=== PATIENT | male | born 1950 | race Caucasian/White ===

== ENCOUNTER 2019-06-05 11:27 | Inpatient (IN) | payer OTHER ==
[~2019-06-05] VITALS: Ht 182.9 cm; Wt 100.2 kg
[2019-06-05 11:36] VITALS: BP 105/58
[2019-06-05 13:13] LABS: HEMATOCRIT 22.8 % (42.0-52.0); MCH 14.8 pg (26.0-34.0); MCHC 27.3 g/dL (28.0-37.0); MCV 54.3 fL (80.0-100.0); PLATELET COUNT 276 thou/uL (150-400); RBC 4.19 mil/uL (4.50-6.00); RDW 20.4 % (10.5-14.5); WBC 5.8 thou/uL (4.0-11.0)
[2019-06-05 13:17] LABS: HEMOGLOBIN 6.2 gm/dL (14.0-18.0)
[2019-06-05 13:24] LABS: ANION GAP 11 mmol/L (7-16); BUN 20 mg/dL (7-18); CALCIUM 8.9 mg/dL (8.5-10.1); CHLORIDE 101 mmol/L (98-107); CO2 24 mmol/L (21-32); CREATININE 0.9 mg/dL (0.7-1.3); GLUCOSE 191 mg/dL (74-106); POTASSIUM 3.8 mmol/L (3.5-5.1); SODIUM 136 mmol/L (136-145)
[2019-06-05 13:34] LABS: TROPONIN-I <0.06 ng/mL (<0.06)
[2019-06-05 13:43] LABS: ABSOLUTE NEUTROPHILS 4.2 thou/uL (1.4-8.2)
[2019-06-05 13:44] LABS: ANISOCYTOSIS 2+; MICROCYTES 3+; OVALOCYTES OCCASIONAL
[2019-06-05 13:45] LABS: HYPOCHROMASIA 3+; POLYCHROMASIA OCCASIONAL; TARGET CELLS OCCASIONAL
--- NOTE | 2019-06-05 14:07 | EKG ---
[facility] [place] [address] ELECTROCARDIOGRAM REPORT Name: KELECHI SHAY Room #: REG ER M.#: [id number] Admission: 06/05/19 Attend Phys: Discharge: Date of : 52 Report #: [id number] THIS REPORT FOR: cc: Megan Gallo MD, Melanie MD Couchonnal,Jens Calabrese MD ~ THIS REPORT FOR: //name// [facility] ED Test Date: 2019-06-05 Test Time: 12:27:02 Pat Name: KELECHI SHAY Department: Room: Gender: M Kettle Tender: : 1950 Requested By: Kelechi Chaudhari Order Number: [id number] MD: Jens Hernandez Measurements Intervals [place] Rate: 86 P: AR: QRS: -57 QRSD: 136 T: 113 QT: 521 QTc: 624 Interpretive Statements Atrial fibrillation Nonspecific IVCD with LAD Inferior infarct, old Lateral leads are also involved No previous ECG available for comparison Electronically Signed On 06-05-2019 14:06:06 CDT by Jens Hernandez [email or web address] <ELECTRONICALLY SIGNED> By: Jens Hernandez MD 06/05/19 1406 1227 122 Jens Hernandez MD /[place]
[2019-06-05 14:50] LABS: ABSOLUTE RETIC COUNT 0.0988 10^6/uL; OBSERVED RETIC COUNT 2.33 % (0.6-2.6)
[2019-06-05 14:52] LABS: % SATURATION 3 % (20-39); IRON 13 ug/dL (65-175); TIBC 422 ug/dL (250-450)
[2019-06-05 18:16] VITALS: BP 105/81
[2019-06-05 19:14] VITALS: BP 103/70
[2019-06-05 19:45] VITALS: BP 108/42
[2019-06-06] VITALS (9 sets, daily range): BP systolic 100–112; BP diastolic 62–79
--- NOTE | 2019-06-06 00:55 | NUR ---
PT ARRIVED ER VIA BED, PLACED IN ROOM 360. DROPLET/AIRBORNE PRECAUTIONS IN PLACE. ADMISSION ASSESSMENTS COMPLETED. PT WAS TO HAVE CT-CHEST W/CONTRAST BUT HE IS UNABLE TO LIE FLAT EVEN FOR FEW SECONDS. "I'M SORRY, I JUST CAN'T DO IT." WILL REASSESS ABILITY TO LIE FLAT WITH NURSING ASSESSMENTS. PROPERTY AND CASUALTY INSURANCE AGENT INFORMED OF PT INABILITY TO LIE FLAT AND DO CT SCAN. CONTINUE TO MONITOR.
[2019-06-06 02:07] LABS: GLYCOHEMOGLOBIN (HGB A1C) 10.4 % (4.8-5.6)
[2019-06-06 06:04] LABS: HEMATOCRIT 21.7 % (42.0-52.0)
[2019-06-06 06:06] LABS: MCH 15.1 pg (26.0-34.0); MCHC 27.4 g/dL (28.0-37.0); MCV 54.9 fL (80.0-100.0); RBC 3.95 mil/uL (4.50-6.00); RDW 20.4 % (10.5-14.5)
[2019-06-06 06:17] LABS: ALBUMIN 2.9 g/dL (3.4-5.0); CALCIUM 8.2 mg/dL (8.5-10.1); POTASSIUM 3.3 mmol/L (3.5-5.1)
[2019-06-06 06:24] LABS: CHOLESTEROL 97 mg/dL (<200); HDL CHOLESTEROL 22 mg/dL (>40); LDL CHOLESTEROL 65 mg/dL (<100); TC:HDL 4.4 Ratio (Not establshd); TRIGLYCERIDE 53 mg/dL (<150); VLDL 11 mg/dL (<40)
[2019-06-06 06:30] LABS: SERUM ASSESSMENT Clear
[2019-06-06 10:07] LABS: DIRECT BILIRUBIN 0.2 mg/dL (<0.1-0.2); TOTAL BILIRUBIN 0.6 mg/dL (<0.1-1.0); TOTAL PROTEIN 6.6 g/dL (6.4-8.2)
--- NOTE | 2019-06-06 11:57 | 2DMMODE ---
[facility] [place] [address] 2 D/M-MODE ECHOCARDIOGRAM Name: BRIDGET SHAY Room #: 360-P ADM IN M.R.#: [id number] Admission: 06/05/19 Attend Phys: Frankie Marshall Discharge: Date of : 52 Report #: [id number] THIS REPORT FOR: cc: Megan Gallo MD, Melanie MD Lundgren,Keny Howe MD [facility] ~ APPROVED REPORT Study performed: 06/06/2019 11:01:34 EXAM: Comprehensive 2D, Doppler, and color-flow Echocardiogram Patient Location: Bedside Room #: 360 Status: routine BSA: 2.25 HR: 91 bpm BP: 108/66 mmHg Rhythm: Atrial Fibrillation Other Information Study Quality: Adequate Indications CHF. AFIB. 2D Dimensions RVDd: 44.56 mm IVSd: 14.00 (7-11mm) LVOT Diam: 22.00 (18-24mm) LVDd: 53.00 mm PWd: 13.11 (7-11mm) Ascending Ao: 37.00 (22-36mm) LVDs: 42.00 (25-40mm) Aortic Root: 35.00 mm Volumes Left Atrial Volume (Systole) Single Plane 4CH: 105.68 mL Single Plane 2CH: 115.40 mL LA ESV Index: 53.00 mL/m2 Aortic Valve AoV Peak Cayetano.: 4.67 m/s AO Peak Gr.: 87.28 mmHg LVOT Max P.41 mmHg AO Mean Gr.: 61.44 mmHg AO V2 Mean: 3.87 m/s LVOT Max V: 0.77 m/s AO V2 VTI: 107.11 cm [facility] [address] [place] [address] 2 D/M-MODE ECHOCARDIOGRAM Name: BRIDGET SHAY Room #: 360-P ADM IN .R.#: [id number] Admission: 06/05/19 Attend Phys: Frankie Sosa Discharge: Date of : 52 Report #: [id number] JESSICA Vmax: 0.62 cm2 Mitral Valve MV Decel. Time: 124.52 ms MV E Max Cayetano.: 1.40 m/s Pulmonary Valve PV Peak Cayetano.: 0.99 m/s PV Peak Gr.: 3.89 mmHg Tricuspid Valve TR Peak Cayetano.: 3.25 m/s RAP Estimate: 10.00 mmHg TR Peak Gr.: 42.20 mmHg PA Pressure: 52.00 mmHg Left Ventricle The left ventricle is normal size. There is global hypokinesis of the left ventricle. Mild to moderate concentric left ventricular hypertrophy. Left ventricular systolic function is moderately decreased. LVEF is 35-40%. This study is not technically sufficient to allow evaluation of the LV diastolic function due to atrial fibrillation. Right Ventricle The right ventricle is normal size. The right ventricular systolic function is normal. Atria Left atrium is moderately dilated. Right atrium is mildly dilated. Aortic Valve Aortic valve is heavily calcified, severely stenotic. No aortic regurgitation is present. Calculated aortic valve area is 0.7 cm2 (Peak pressure gradient of 62 mmHg, mean pressure gradient of 40 mmHg). Mitral Valve Mild mitral annular calcification. Mild mitral regurgitation. No evidence of mitral valve stenosis. Tricuspid Valve The tricuspid valve is normal in structure. Mild to moderate tricuspid regurgitation. Estimated PAP is 50-55mmHg. Pulmonic Valve The pulmonary valve is normal in structure. Mild pulmonic [facility] [address] [place] [address] 2 D/M-MODE ECHOCARDIOGRAM Name: BRIDGET SHAY Room #: 360-P [facility] IN M.R.#: [id number] Admission: 06/05/19 Attend Phys: Frankie Sosa Discharge: Date of : 52 Report #: [id number] regurgitation. Great Vessels The aortic root is normal in size. The ascending aorta is normal in size. IVC is borderline dilated and collapses <50% with inspiration. Pericardium There is no pericardial effusion. Left and right pleural effusions noted. <Conclusion> Left ventricular systolic function is moderately decreased. There is global hypokinesis of the left ventricle. LVEF is 35-40%. Aortic valve is heavily calcified, severely stenotic. No aortic insufficiency Calculated aortic valve area is 0.7 cm2 (Peak pressure gradient of 62 mmHg, mean pressure gradient of 40 mmHg). Mild mitral annular calcification. Mild mitral regurgitation. Mild to moderate tricuspid regurgitation. Estimated pulmonary artery pressure of 50-55mmHg. No pericardial effusion. Left and right pleural effusions noted. <ELECTRONICALLY SIGNED> By: Keny Bhatti MD, [facility] 06/06/19 1156 1156 1156 Keny Bhatti MD, FAC /INF
--- NOTE | 2019-06-06 13:00 | NUR ---
PT COVID 19 TEST WAS NEGATIVE SO ORDERS OBTAINED TO TRANSFER TO .
--- NOTE | 2019-06-06 13:38 | NUR ---
REC PT FROM 3W, HAS BLOOD AND SEVERAL ABX DUE, WILL ADM ABLE. NO NEEDS AT THIS TIME OTHER THAN MODERATE ANXIETY FOR HIS SOA. NEWLY DIAGNOSED WITH CHF AND DM; WILL GIVE INFORMATION SHEETS, SEE SEPARATE INTERVENTIONS FOR ASSESSMENTS, NEEDS STOOL OCCULT, ALSO EXPRESSES SLIGHT UPSET WITH HIS SOA. ASKED IF HE'D LIKED SOMETHING MINIMAL FOR ANXIETY HE ALSO STATES HE CANNOT SLEEP. HE DECLINED EMPHATICALLY THEN ACQUIESCED. WILL REACH OUT TO HIS HOSPITALIS WITH REQUEST. WILL CONTINUE TO MONITOR PT.
--- NOTE | 2019-06-07 00:30 | NUR ---
ASSUMED CARE 1900. PT C/O BACK PAIN. PT DID NOT WANT ANYTHING FOR PAIN. A0 X4. VSS. REPORT GIVEN TO RN AT 0031. NO CONCERNS AT THIS TIME.
[2019-06-07 03:13] VITALS: BP 105/64
[2019-06-07 05:27] LABS: HEMOGLOBIN 6.9 gm/dL (14.0-18.0); WBC 5.5 thou/uL (4.0-11.0)
[2019-06-07 05:29] LABS: POTASSIUM 4.1 mmol/L (3.5-5.1)
[2019-06-07 05:31] LABS: HEMATOCRIT 23.7 % (42.0-52.0); MCH 16.8 pg (26.0-34.0); MCHC 29.2 g/dL (28.0-37.0); MCV 57.5 fL (80.0-100.0); RBC 4.11 mil/uL (4.50-6.00); RDW 22.3 % (10.5-14.5)
[2019-06-07 07:26] VITALS: BP 104/64
--- NOTE | 2019-06-07 10:49 | NUR ---
patient admits from home with resp failure and SOA. Patient reports he lives with and retired. 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 All needs on one level in home. 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 Patient has medicare primary and reports he does not think he has prescription coverage. he believes he applied with [facility] prescription but unsure is active or accepting. Patient to have EGD tomorrow. COVID test none detected. Casemgt following.
[2019-06-07 10:58] VITALS: BP 93/63
[2019-06-07 11:10] VITALS: BP 105/65; BP 110/74
--- NOTE | 2019-06-07 11:52 | HC ---
[facility] [place] [address] CONSULTATION Name: BRIDGET SHAY Room #: 207-P [facility] IN M.R.#: [id number] Admission: 06/05/19 Attend Phys: Frankie Marshall Discharge: Date of : 52 Report #: [id number] THIS REPORT FOR: cc: Megan Gallo MD,Norman Tyler MD, MD ~ CC: Frankie Gallo DATE OF SERVICE: 06/06/2019 ENDOCRINE CONSULTATION NOTE CONSULTING PHYSICIAN: Dr. Marshall. REASON FOR CONSULTATION: Type 2 diabetes mellitus. HISTORY OF PRESENT ILLNESS: This is a 68-year-old male patient whose medical background is significant for the medical issues of atrial fibrillation, as well as intermittent back pain issues. The patient presented to [facility] yesterday with complaints of progressive shortness of breath, orthopnea, lower extremity edema, and dyspnea on exertion. He has been to Dr. Gallo's office first who after an initial evaluation told him that he needs to present to the ER, which he did. On arrival, he was found to be in congestive heart failure, as well as to have severe anemia and was admitted for further care and monitoring. Also during this hospital stay, the patient was found to have persistent hyperglycemia with blood glucose values reaching as high as 226 mg/dL. This outlook was further assessed with a hemoglobin A1c that came back at 10.4%. When discussed with the patient, he indicated that he had no prior knowledge of a diagnosis of diabetes. He has not appreciated a particular tendency for polyuria or nocturia. He has not appreciated weight loss, or other significant changes. He does report an overall worsening fatigue and dyspnea on exertion as noted above. REVIEW OF SYSTEMS: CONSTITUTIONAL: Fatigue, tiredness. No fever or chills. No significant body weight changes. HEENT: Negative for sore throat, sinus pain, or ear drainage. PULMONARY: Noted for shortness of breath, dyspnea on exertion, orthopnea, intermittent cough, but not hemoptysis. CARDIAC: Dyspnea on exertion, lower extremity edema, orthopnea. No chest pain. He has intermittent palpitations. GASTROINTESTINAL: Abdominal distention, abdominal discomfort, nausea, but no vomiting, no hematemesis, no melena. NEUROLOGY: Negative for loss of consciousness, seizure activity or severe frequent headaches, but noted for some lightheadedness. [facility] [address] [place] [address] CONSULTATION Name: BRIDGET SHAY Room #: 207-P [facility] IN M.R.#: [id number] Admission: 06/05/19 Attend Phys: Frankie Marshall Discharge: Date of : 52 Report #: [id number] PSYCHIATRIC: Negative for delusions or hallucinations. MUSCULOSKELETAL: The patient has chronic back pain and scattered or sporadic arthralgia and myalgia. Otherwise, the review of system is noncontributory other than those mentioned in the HPI. PAST MEDICAL HISTORY: Chronic back pain. OUTPATIENT MEDICATIONS: None. ALLERGIES: None. FAMILY HISTORY: Noncontributory. SOCIAL HISTORY: The patient quit smoking more than 4 years ago, but he drinks alcohol regularly and does not believe he drinks heavily. He is and has 3 children, one . PHYSICAL EXAMINATION: GENERAL: male patient who is not in apparent pain or distress. VITAL SIGNS: Blood pressure is 102/66 mmHg, heart rate 86 beats per minute, respirations 20 per minute, and temperature 36.5 degrees. CONSTITUTIONAL: The patient is sitting upright in bed, appears a bit tired, but not in pain or distress. HEENT: Anicteric sclerae. Intact extraocular motions. NECK: Supple, without carotid bruits, no thyromegaly. CHEST: Noted for distant breath sounds, moderate air entry, scattered rales and rhonchi, bibasilar crackles. HEART: Regular rate and rhythm without murmurs or gallops. ABDOMEN: Distended, somewhat tense, but not rigid. No guarding. Active bowel sounds. EXTREMITIES: Lower extremity exam, +1 ankle edema bilaterally. Stasis dermatitis. Pedal pulses are faint. Sensation to light touch is largely intact. NEUROLOGIC: Awake, alert and oriented to time, place and person. The remainder of his examination is largely nonfocal. PSYCHIATRY: Interactive, appropriate. Normal mood and affect. LABORATORY DATA: Blood glucose values as noted above, reached a high of 226 mg/dL, but are mostly below 200 mg/dL. Hemoglobin A1c 10.4%. Sodium 135, potassium 3.3, chloride 100, CO2 of 27, anion gap 8, BUN 19, creatinine 1.0, AST 26, total bilirubin 0.6, direct bilirubin 0.2, calcium 8.2, phosphorus 5.0, magnesium 1.7, alkaline phosphatase 68, ALT 21, total protein 6.6, and albumin 3.0. EGFR 75. Troponin is negative. Total cholesterol 97, triglycerides 53, HDL 22, LDL 65. BNP 9409. White blood count 5.0, hemoglobin 6.0, hematocrit [facility] [address] [place] [address] CONSULTATION Name: BRIDGET SHAY Room #: 207-P ADM IN M.R.#: [id number] Admission: 06/05/19 Attend Phys: Frankie Marshall Discharge: Date of : 52 Report #: [id number] 21.7, and platelets 265. TSH 2.512. ASSESSMENT AND PLAN: 1. Type 2 diabetes mellitus. This is a new diagnosis for the patient confirmed by the documentation of multiple hyperglycemic blood glucose values as well as a hemoglobin A1c of 10.4%. The patient was counseled about the significance of this finding as well as about the pathophysiology of type 2 diabetes mellitus and the importance of achieving and maintaining adequate glycemic control so as to avoid diabetic complications. The patient expressed a strong desire to avoid insulin therapy as an outpatient and I believe that that should be feasible based on his initial glycemic pattern outlook. While the patient could be a good candidate for metformin therapy as well as SGLT2 inhibitor later on, I would avoid both in the setting of florid acute congestive heart failure exacerbation. An appropriate oral agent to be attempted at this point is Tradjenta and I will do so at 5 mg once daily. We could add low dose sulfonylurea therapy later on if needed. In the immediate setting, I will continue with the Humalog supplemental scale coverage at a low intensity while we continue to monitor his blood glucose values a.c. and at bedtime. 2. Anemia. Severe, the patient is undergoing an endoscopic evaluation later on and is being planned for blood transfusion as well. 3. Congestive heart failure. Cardiology consultation underway while the patient is being diuresed. As noted above, this issue makes an SGLT2 inhibitor of dual benefit for both diabetes and congestive heart failure; however, not in the acute setting. I certainly appreciate this consultation by Dr. Marshall. <ELECTRONICALLY SIGNED> By: Ahian Yang MD 06/07/19 1152 1240 1302 Norman Yang MD /nt
--- NOTE | 2019-06-07 15:50 | NUR ---
ASSESSMENT CHARTED. PT ALERT AND ORIENTED. VSS. HAD 1 UNIT OF BLOOD THIS SHIFT. IV LASIX GIVEN. UP IN THE CHAIR THIS SHIFT. WILL CONTINUE TO MONITOR.
[2019-06-07 16:29] LABS: HEMATOCRIT 31.1 % (42.0-52.0)
[2019-06-07 16:30] VITALS: BP 105/68
[2019-06-07 16:31] LABS: HEMOGLOBIN 9.1 gm/dL (14.0-18.0)
[2019-06-07 21:07] VITALS: BP 92/64
[2019-06-08] VITALS (7 sets, daily range): BP systolic 86–96; BP diastolic 57–66
[2019-06-08 05:02] LABS: CALCIUM 8.2 mg/dL (8.5-10.1); CREATININE 0.9 mg/dL (0.7-1.3); HEMATOCRIT 30.1 % (42.0-52.0); HEMOGLOBIN 8.6 gm/dL (14.0-18.0); MCH 17.4 pg (26.0-34.0); MCHC 28.8 g/dL (28.0-37.0); MCV 60.7 fL (80.0-100.0); POTASSIUM 3.8 mmol/L (3.5-5.1); RBC 4.95 mil/uL (4.50-6.00); RDW 29.3 % (10.5-14.5); WBC 6.8 thou/uL (4.0-11.0)
--- NOTE | 2019-06-08 07:38 | NUR ---
ASSUME CARE 1900. PT/VITALS STABLE. PATIENT IS CONFUSED AND A/O TO SELF ONLY. POORLY COMMMUNICATES NEEDS. AGITATION AND RESTLESSNESS NOTED. FREQUENTLY JUMPS OUT OF BED AND EASILY GETS AGITATED, BUT CALMS WITH REDIRECTION. ASSESSMENT CHARTED. RESTRAINTS RESTARTED BECAUSE PATIENT WAS AGITATED AND JUMPING OUT OF BED. PLAN IS TO CONITNUE WITH ABX AND MONITOR LEVEL OF CONCIOUSNESS. WILL CONITNUE TO MONITOR AND FOLLOW WITH POC
--- NOTE | 2019-06-08 08:02 | NUR ---
ASSUME CARE 1900.VITALSSTABLE. BP RUNS SOFT. DENIES ANY PAIN AT THIS TIME. MODERATE TOLERANCE TO ACTIVITY. MILD SOA WITH ACTIVITY BUT NONE NOTED WITH REST. SR/BBB/1DABV NOTED ON MONITOR WITH HR CONTROLLED IN 80s. PLAN IS POSSIBLE EGD TODAY TO FIND CAUSE OF BLEEDING. WILL CONTINUE TO MONITOR AND FOLLOW WITH POC
--- NOTE | 2019-06-08 10:41 | NUR ---
Case discussed with the care team. Pt had EGD this am. Possible colonoscopy tomorrow or tuesday. Pt got blood yesterday. Nursing indicates that pt has requested that no medical information be shared with his other than through him. Therapy evals in progress. Will follow along.
--- NOTE | 2019-06-08 19:48 | NUR ---
ASSUMED CARE 0700. ALERTX4, EGD COMPLETED WITH NO INTERVENTIONS, PLANS TO HAVE COLONOSCOPY ON TUESDAY. TOLERATTING REG DIET. WAITNING STOOL SAMPLE STOOL OCCULT. UP AB JOLLY TO BATHROOM. EDEMA IN LE- LEG ELEVATED. PT SLEEPS IN RECLINER. CALL LIGHT IN REACH. REPORTED OFF TO NIGHT NURSE.
[2019-06-09 01:00] VITALS: BP 90/61
[2019-06-09 04:46] VITALS: BP 96/66
[2019-06-09 06:07] LABS: HEMATOCRIT 29.9 % (42.0-52.0); HEMOGLOBIN 8.7 gm/dL (14.0-18.0); MCH 17.7 pg (26.0-34.0); MCHC 29.2 g/dL (28.0-37.0); MCV 60.7 fL (80.0-100.0); RBC 4.93 mil/uL (4.50-6.00); WBC 6.6 thou/uL (4.0-11.0)
[2019-06-09 06:15] LABS: CALCIUM 7.9 mg/dL (8.5-10.1); POTASSIUM 3.7 mmol/L (3.5-5.1)
[2019-06-09 07:57] VITALS: BP 93/73
[2019-06-09 11:38] VITALS: BP 82/53
[2019-06-09 16:14] VITALS: BP 92/62
--- NOTE | 2019-06-09 18:56 | NUR ---
ASSUMED CARE 0700. A/OX4, DENIES CHEST PAIN, DENIES SOB EDEMA ON ETREMITIES IMPROVING. VOICED HE FEELS HE THINKS HE COULD SLEEP IN HIS BED HOWEVER, IN IN BEDSIDE CHAIR WITH LE ELEVATED. CT OF CHEST AND ABD COMPLETED, SEE NOTES. PT UNDERSTANDS HE WILL PREP FOR COLONSCOPY ON TUESDAY FOR A TUESDAY PROCEDURE. CALLS FOR ASSISTANCE.
[2019-06-09 19:25] VITALS: BP 96/62
[2019-06-10 04:05] VITALS: BP 101/67
--- NOTE | 2019-06-10 04:05 | NUR ---
pt resting quietly in recliner, no c/o pain, vss, pt up ad jessika in room, worried about gi test for tuesday - much encoragement and education provided to pt, will con't to monitor per ppoc.
--- NOTE | 2019-06-10 08:08 | NUR ---
ASSUMED CARE OF PT AT SHIFT CHANGE, A&0X4, UP AD JOLLY, SWELLING ALL OVER LITTLE LESS THAN FEW DAYS PRIOR. HAD BM TWO DAYS AGO, REFRAINED FROM FIBER THIS A.M. SAYING HE'D BE CLEANED OUT FOR SCOPE PROCEDURE UPCOMING. LESS SOA. SEE SEPARATE INTERVENTIONS FOR ASSESSMENTS. HAS RFA SORE AREA, VERY TENDER TO TOUCH. STATES HE HAD AN IV THERE AT SOME POINT? WILL LET PHYSICIAN KNOW AND APPLY ICE PACK. NO OTHER C/O PAIN OR NEEDS AT THIS TIME. ENCOURAGED HIM TO USE CALL LIGHT FOR ANY NEEDS
--- NOTE | 2019-06-10 08:43 | NUR ---
PT REC CALL FROM OUR PHYSICIAN WITH THE WORDS 'I MIGHT HAVE IT?'. HOUSE SUPV CALLED TO SAY HE'LL BE TX TO 3W, REPORT CALLED YET IM IN MIDST OF GIVING IV/PO MEDS. WILL REMOVE IN BED WHEN HE'S DONE WITH BREAKFAST. ALL MEDS ADM THIS A.M. THAT ARE DUE. ICE PACK GIVEN FOR SORE LFA.
[2019-06-10 09:36] LABS: HEMATOCRIT 31.4 % (42.0-52.0); MCH 18.2 pg (26.0-34.0); MCHC 28.7 g/dL (28.0-37.0); MCV 63.4 fL (80.0-100.0); RBC 4.94 mil/uL (4.50-6.00); RDW 31.4 % (10.5-14.5); WBC 6.4 thou/uL (4.0-11.0)
[2019-06-10 09:38] LABS: CALCIUM 8.5 mg/dL (8.5-10.1); MAGNESIUM 1.7 mg/dL (1.8-2.4); POTASSIUM 3.9 mmol/L (3.5-5.1)
[2019-06-10 12:14] VITALS: BP 90/59
[2019-06-10 16:00] VITALS: BP 108/71
--- NOTE | 2019-06-10 18:05 | NUR ---
RECEIVED PT'S CARE AROUND 1130; PT. ON BED; AOX4; NO C/O PAIN; MEDICATION GIVEN; EDUCATED ABOUT FALL PREVENTIONS; ST. UNDERSTANDING; RECEIVED DR. MORENO AROUND 1300; ORDERS RECEIVED; PT. NOTIFIED ABOUT IT; EDUCATED ABOUT NEW MEDICATION; STShweta UNDERSTANDING; MEDICATION GIVEN; THROUGH THE AFTER ABLE TO REST; CARE TRANSFER TO ANDRES TORIBIO NURSE AROUND 1700;
[2019-06-10 19:43] VITALS: BP 121/73
[2019-06-11 04:45] VITALS: BP 100/60
--- NOTE | 2019-06-11 05:44 | NUR ---
ASSESSMENT DOCUMENTED.PT BEEN RESTING IN NO ACUTE DISTRESS.PREP FOR COLONOSCOPY TODAY,PROCESS SLOW BUT ONGOING,PT STILL NOT CLEAR,STILL PASSING BOWELS.DYSNEA ON EXERTION WITH TOILETING,REQUIRING O2 AT 2LITERS FOR COMFORT.BI LES/FEETS WITH PITTING EDEMA,ELEVATED WHILE IN BED,LUNGS WITH CRACKLES AND COARSENESS,NO COUGH NOTED,LEFT ARM IV SITE INFILTRATED,SWOLLEN,WARM COMPRESSION VS COLD APPLIED,PT VOICES PAIN UPON TOUCH.PT DENIES ANY OTHER NEEDS AT THIS TIME.WILL CONTINUES TO MONITOR PER POC.
[2019-06-11 06:17] LABS: HEMATOCRIT 29.7 % (42.0-52.0); HEMOGLOBIN 8.6 gm/dL (14.0-18.0); MCH 18.5 pg (26.0-34.0); MCV 63.7 fL (80.0-100.0); RBC 4.66 mil/uL (4.50-6.00); RDW 31.7 % (10.5-14.5); WBC 7.3 thou/uL (4.0-11.0)
[2019-06-11 06:38] LABS: CALCIUM 8.1 mg/dL (8.5-10.1); CREATININE 0.8 mg/dL (0.7-1.3); MAGNESIUM 1.7 mg/dL (1.8-2.4); POTASSIUM 3.8 mmol/L (3.5-5.1)
[2019-06-11 07:30] VITALS: BP 102/66
[2019-06-11 10:30] VITALS: BP 117/68
--- NOTE | 2019-06-11 13:38 | NUR ---
spoke with dianne patient having colonscopy today. Cont plan dc home independently at vt.
[2019-06-11 16:30] VITALS: BP 100/71
--- NOTE | 2019-06-11 17:36 | NUR ---
ASSESSMENT DOCUMENTED, VSS AND AFEBRILE. C/O SOB WITH ACTIVITIES, LASIX GIVEN, AND PATIENT REPORTED RELIEFE. AND WILL CONTINUE WITH POC.
[2019-06-11 19:55] VITALS: BP 100/60
--- NOTE | 2019-06-11 22:39 | NUR ---
PATIENT REQUESTED DOSE OF IVP LASIX THIS EVENING BECAUSE HE STATES BREATHING HAS BEEN MORE DIFFICULT SINCE HE STOPPED RECEIVING DIURESIS. VITAL SIGNS STABLE WITH PATIENT SOUNDING CLEAR IN SOME LUNG DOWD AND DIMINISHED IN OTHERS. DROP CREW LABORER AND CARDIOLOGY CONTACTED WITH ORDERS RECEIVED FOR ONE TIME SMALL DOSE NOW, AND CHEST XRAY EARLY TOMORROW MORNING. NURSE TO CONTINUE TO MONITOR PATIENTS BREATHING STATUS.
[2019-06-12] VITALS (7 sets, daily range): BP systolic 99–149; BP diastolic 60–80
--- NOTE | 2019-06-12 04:57 | NUR ---
PATIENT IS PROGRESSING SLOWLY IN HIS CARE PLAN. VITAL SIGNS STABLE WITH PATIENT HAVING NO COMPLAINTS OF NAUSEA. PATIENT DID COMPLAIN OF PAIN IN BACK WHICH WAS TREATED THROUGH MEDICATION AND REPOSITIONING. BREATHING STABLE WITH PATIENT REQUESTING AND RECEIVING IVP LASIX ONCE TO GOOD EFFECT. CARDIAC CATH PLANNED FOR LATER TODAY. CONTINUE PLAN OF CARE.
[2019-06-12 05:39] LABS: HEMATOCRIT 31.4 % (42.0-52.0); MCH 18.8 pg (26.0-34.0); MCHC 28.7 g/dL (28.0-37.0); MCV 65.3 fL (80.0-100.0); RBC 4.81 mil/uL (4.50-6.00); RDW 34.5 % (10.5-14.5); WBC 7.1 thou/uL (4.0-11.0)
[2019-06-12 06:11] LABS: CREATININE 0.7 mg/dL (0.7-1.3); MAGNESIUM 1.8 mg/dL (1.8-2.4); POTASSIUM 4.3 mmol/L (3.5-5.1)
--- NOTE | 2019-06-12 09:01 | CATHLAB ---
[facility] [place] [address] INVASIVE PROCEDURE REPORT Name: BRIDGET SHAY Room #: 207-P ADM IN M.R.#: [id number] Admission: 06/05/19 Attend Phys: Frankie Singer Esther Discharge: Date of : 52 Report #: [id number] THIS REPORT FOR: cc: Megan Gallo MD, Melanie MD Lundgren, Craig H. MD [facility] ~ APPROVED REPORT Study performed: 06/12/2019 08:11:40 Patient Details Patient Status: In-Patient Room #: The patient is a 68 year-old male Event Personnel Keny Bhatti Loft Worker [employer], Ny Pendleton RN RN, Irma Meza Monitor, Yunior Kim RTR Scrub Procedures Performed Art Access - R femoral artery* 51772 Initial Mod Sed Same Phys/QHP Gr5y [id number] Coronary Angiography Only [id number] CORANG Hemostasis w/ Mynx Indication Valvular heart disease Procedure Narrative The patient was brought electively to the Cardiac Catheterization Laboratory and was prepped and draped in a sterile manner. The was infiltrated with 1% Lidocaine subcutaneous anesthesia. A PINNACLE 6FR Sheath #[id number] sheath was inserted into the RFA^. Coronary angiography was performed using coronary diagnostic catheters. The right coronary system was accessed and visualized with a JR 4 catheter. The left coronary system was accessed and visualized with a JL 4.5 catheter. Closure device was deployed with a 6 Fr Mynx. The patient tolerated the procedure well and there were no complications associated with the procedure. There was no hematoma. Intraoperative Conscious Sedation Sedation start time: 08:03 Case end Time: 08:28 Fentanyl 100 mcg Versed 2 mg Fluoro Time: 2.90 minutes [facility] [address] [place] [address] INVASIVE PROCEDURE REPORT Name: BRIDGET SHAY Room #: 207-P [facility] IN .R.#: [id number] Admission: 06/05/19 Attend Phys: Frankie Sosa Discharge: Date of : 52 Report #: [id number] Dose: DAP 8798.00 cGycm2 1266 mGy Contrast Type and Amount: Omnipaque 65 ml Coronary Angiography The patient's coronary anatomy is right dominant. Diagnostic Cath Left Main Normal left main LAD Normal left anterior descending Diagonal 1 Single large bifurcating diagonal branch, minimal proximal plaquing Circumflex Large but nondominant and comprised of a single large marginal branch OM1 Normal OM1 Right Coronary Angiographically normal and dominant right coronary R PDA Normal posterior descending RPLV Normal posterolateral branch Left Ventriculography Left Ventriculography was not performed. Hemodynamics The aortic pressure is 106/61 mmHg with a mean of 76 mmHg. Conclusion 1. Severe calcific aortic stenosis by echocardiography 2. Normal left main 3. Normal coronary vasculature. Right coronary dominant circulation Recommendations Valve Surgery <ELECTRONICALLY SIGNED> By: Keny Bhatti MD, FACC 06/12/1958 8 Keny Bhatti MD, [facility] /INF
[2019-06-12] MEDS ORDERED: LIPITOR 20 MG T20 M1 PO (09:21)
[2019-06-12] MEDS ORDERED: PACERONE 200 M200 M1 PO (09:21)
[2019-06-12] MEDS ORDERED: K-DUR 20 MEQ T20 MEQ PO (09:21)
[2019-06-12] MEDS ORDERED: DEMADEX20 MG PO (09:21)
--- NOTE | 2019-06-12 15:08 | PATH ---
[facility] [address] [place] [address] PATHOLOGY RPT PROCEDURE Name: KELECHI SHAY Room #: 207-P [facility] IN M.R.#: [id number] Admission: 06/05/19 Date of : 52 Discharge: Report #: [id number] Path Case #: [id number] [facility] Accession Number: [id number] . 01 Material submitted: . sigmoid colon - POLYP AT SIGMOID . 01 Clinical history: . Iron deficiency anemia . 02 Diagnosis: Polyp, at sigmoid, endoscopic biopsy: - Hyperplastic polyp. - Negative for dysplasia. (IUV/db; 06/12/2019) LBQ 06/12/2019 1308 Local . 02 Electronically signed: . Sariah Mccormack MD, Pathologist NPI- [id number] . 01 Gross description: . The specimen is received in formalin, labeled "Kelechi Shay, polyp at sigmoid" and consists of 2 zavala fragments of tissue measuring 0.2 x 0.2 x 0.2 and 0.3 x 0.2 x 0.2 cm and are entirely submitted in A1. (DOE; 06/11/2019) JFQ/EKATERINA 06/11/2019 1448 Local . 02 Pathologist provided ICD-10: K63.5 . 02 CPT . 561620 Specimen Comment: A courtesy copy of this report has been sent to [phone] Specimen Comment: Report sent to Performed at: [address], [place] [id number] MD Jos Rangel MD Phone: [phone] Performed at: [address] [id number] MD Sariah Mccormack MD Phone: [phone]
--- NOTE | 2019-06-12 15:32 | NUR ---
Patient does not have prescription benefit. barbie sp with patient regarding medicaid application to assist. Vouched medications and strips and meter in amount of $557.47 for 30 day supply.
--- NOTE | 2019-06-12 16:27 | NUR ---
ASSUMED CARE AT SHIFT CHANGE, ALERT AND ORIENTED X4. ASSESSMENT DOCUMENTED, AND POST CARDIAC CATH ASSESSMENT COMPLETED. DISCHARGE, MEDICATION, AND MEDICATION INSTRUCTIONS GIVEN TO PATIENT AND HE VERBALIZED UNDERSTANDING. PATIENT DISCHARGED HOME.
== END 2019-06-12 16:40 | disposition home or self-care (01) | DRG 286 ==
LOC: ER 11:27 → 3W 14:15 → EROBS 14:15 → 3W 19:17 → 2N 06-06 13:39 → ENTRNSPT 06-12 16:23 → 2N 06-12 16:40
PROVIDERS: Emergency Medicine; Internal Medicine; Nurse Practitioner; ADMIT Hospitalist
PROC: 30233N1 Transfusion of Nonautologous Red Blood Cells into Peripheral Vein, Percutaneous Approach (ICD-10-PCS; principal; 2019-06-06)
PROC: B2151ZZ Fluoroscopy of Left Heart using Low Osmolar Contrast (ICD-10-PCS; principal; 2019-06-06)
PROC: 4A023N7 Measurement of Cardiac Sampling and Pressure, Left Heart, Percutaneous Approach (ICD-10-PCS; principal; 2019-06-06)
PROC: 0DJ08ZZ Inspection of Upper Intestinal Tract, Via Natural or Artificial Opening Endoscopic (ICD-10-PCS; 2019-06-08)
PROC: 0DBN8ZZ Excision of Sigmoid Colon, Via Natural or Artificial Opening Endoscopic (ICD-10-PCS; 2019-06-11)
DX: I50.23 Acute on chronic systolic (congestive) heart failure (principal); J96.01 Acute respiratory failure with hypoxia; D62 Acute posthemorrhagic anemia; E46 Unspecified protein-calorie malnutrition; J91.8 Pleural effusion in other conditions classified elsewhere; I48.92 Unspecified atrial flutter; I48.20 Chronic atrial fibrillation, unspecified; I43 Cardiomyopathy in diseases classified elsewhere; I44.0 Atrioventricular block, first degree; G89.29 Other chronic pain; M54.9 Dorsalgia, unspecified; D12.5 Benign neoplasm of sigmoid colon; E11.65 Type 2 diabetes mellitus with hyperglycemia; I48.0 Paroxysmal atrial fibrillation; E87.6 Hypokalemia; Z20.828 Contact with and (suspected) exposure to other viral communicable diseases; I35.0 Nonrheumatic aortic (valve) stenosis; D50.9 Iron deficiency anemia, unspecified; I95.9 Hypotension, unspecified; E83.42 Hypomagnesemia; E78.5 Hyperlipidemia, unspecified; E66.9 Obesity, unspecified; K64.8 Other hemorrhoids; Z98.49 Cataract extraction status, unspecified eye; Z72.89 Other problems related to lifestyle; Z87.891 Personal history of nicotine dependence; Z68.29 Body mass index [BMI] 29.0-29.9, adult
CPT/HCPCS: 10081; 10879; 62110; 62900

== ENCOUNTER → 2019-08-08 | Outpatient (CLI) | payer OTHER ==
[~2019-08-08] MED LIST: DEMADEX20 MG PO; K-DUR 20 MEQ T20 MEQ PO; LIPITOR 20 MG T20 M1 PO; PACERONE 200 M200 M1 PO
== END ==
LOC: SJCVC 10:43
PROVIDERS: ATTEND Internal Medicine
DX: I45.2 Bifascicular block (principal); I44.0 Atrioventricular block, first degree; R94.31 Abnormal electrocardiogram [ECG] [EKG]; I11.0 Hypertensive heart disease with heart failure; I50.22 Chronic systolic (congestive) heart failure; I48.0 Paroxysmal atrial fibrillation; I42.8 Other cardiomyopathies; I35.0 Nonrheumatic aortic (valve) stenosis; D50.0 Iron deficiency anemia secondary to blood loss (chronic); E78.5 Hyperlipidemia, unspecified; Z79.899 Other long term (current) drug therapy; Z87.891 Personal history of nicotine dependence

== ENCOUNTER → 2019-11-09 | Outpatient (CLI) | payer OTHER | LOC: SJCVC 10:52 | PROVIDERS: ATTEND Internal Medicine | DX: R94.31 Abnormal electrocardiogram [ECG] [EKG] (principal); I42.8 Other cardiomyopathies; I35.0 Nonrheumatic aortic (valve) stenosis; I50.22 Chronic systolic (congestive) heart failure; E78.5 Hyperlipidemia, unspecified; I48.0 Paroxysmal atrial fibrillation; D50.0 Iron deficiency anemia secondary to blood loss (chronic); I49.8 Other specified cardiac arrhythmias; I11.0 Hypertensive heart disease with heart failure; Z95.2 Presence of prosthetic heart valve; Z95.0 Presence of cardiac pacemaker ==

== ENCOUNTER → 2020-02-08 | Outpatient (CLI) | payer OTHER, MEDICARE | LOC: SJCVCIMAG 08:46 | PROVIDERS: ATTEND Internal Medicine | DX: I07.1 Rheumatic tricuspid insufficiency (principal); R94.31 Abnormal electrocardiogram [ECG] [EKG]; I45.10 Unspecified right bundle-branch block; I42.8 Other cardiomyopathies; I35.0 Nonrheumatic aortic (valve) stenosis; I11.0 Hypertensive heart disease with heart failure; I50.22 Chronic systolic (congestive) heart failure; E78.5 Hyperlipidemia, unspecified; I48.0 Paroxysmal atrial fibrillation; D50.0 Iron deficiency anemia secondary to blood loss (chronic); Z95.0 Presence of cardiac pacemaker; Z95.2 Presence of prosthetic heart valve; Z79.899 Other long term (current) drug therapy; Z87.891 Personal history of nicotine dependence ==